=== PATIENT | male | born 1965 | race Caucasian/White ===

== ENCOUNTER 2016-12-21 17:40 | Emergency (ER) | payer MEDICARE, OTHER ==
[2016-12-21 18:22] LABS: HEMOGLOBIN 14.4 gm/dl (14.0-17.5); RED BLOOD COUNT 4.61 M/UL (4.20-5.50); WHITE BLOOD COUNT 7.5 K/UL (4.5-11.0)
[2016-12-21 18:43] LABS: BUN/CREATININE RATIO 13 (0-10)
== END 2016-12-21 23:07 | disposition home or self-care (01) ==
LOC: ER1 17:40
PROVIDERS: Emergency Medicine
DX: M79.662 Pain in left lower leg (principal); R07.9 Chest pain, unspecified; E11.9 Type 2 diabetes mellitus without complications; I10 Essential (primary) hypertension; G40.909 Epilepsy, unspecified, not intractable, without status epilepticus; Z86.718 Personal history of other venous thrombosis and embolism; Z86.711 Personal history of pulmonary embolism; Z79.82 Long term (current) use of aspirin; Z79.899 Other long term (current) drug therapy
CPT/HCPCS: 36415; 71010; 80048; 82040; 82247; 84075; 84155; 84450; 84460; 84484; 85025; 85379; 85610; 85730; 93005; 93925; 93971; 99284

== ENCOUNTER 2017-02-27 05:45 | Emergency (ER) | payer MEDICARE, OTHER ==
[2017-02-27 10:15] LABS: HEMOGLOBIN 13.1 gm/dl (14.0-17.5); RED BLOOD COUNT 4.28 M/UL (4.20-5.50)
[2017-02-27 10:35] LABS: BUN/CREATININE RATIO 17 (0-10)
== END 2017-02-27 14:10 | disposition home or self-care (01) ==
LOC: ER1 05:45
PROVIDERS: Emergency Medicine
DX: R10.9 Unspecified abdominal pain (principal); I10 Essential (primary) hypertension; I50.9 Heart failure, unspecified; E78.5 Hyperlipidemia, unspecified; G47.30 Sleep apnea, unspecified; J44.9 Chronic obstructive pulmonary disease, unspecified; Z86.73 Personal history of transient ischemic attack (TIA), and cerebral infarction without residual deficits
CPT/HCPCS: 36415; 71010; 80053; 81001; 82550; 82553; 83874; 84484; 85025; 93005; 96361; 96374; 96375; 96376; 99285; J2270; J2405; J7030; J7050; Q9962

== ENCOUNTER → 2017-03-01 | Outpatient (CLI) | payer MEDICARE, OTHER | LOC: LAB 09:27 | DX: R07.89 Other chest pain (principal) | CPT/HCPCS: 36415; 85379 ==

== ENCOUNTER → 2017-03-02 | Outpatient (CLI) | payer MEDICARE, OTHER | LOC: KOH-I 10:24 | DX: R10.811 Right upper quadrant abdominal tenderness (principal); R07.89 Other chest pain; K76.0 Fatty (change of) liver, not elsewhere classified; Z90.49 Acquired absence of other specified parts of digestive tract | CPT/HCPCS: 76705 ==

== ENCOUNTER 2021-07-08 10:24 | Emergency (ER) | payer MEDICARE ==
[~2021-07-08 10:24] MED LIST: ATORVASTATIN CA20 MG PO; BENADRYL 25MG C25 MG PO; BENTYL 10MG CAP10 MG PO; ECOTRIN81 MG PO; IBUPROFEN600 MG PO; NITROSTAT0.4 MG SL; NORCO 5-325 TA1 EACH PO; PROTONIX40 MG PO; ULTRAM50 MG PO; XYLOCAINE 2% JE30 ML TOP; ZANTAC150 MG PO; ZOFRAN ODT4 MG PO
== END 2021-07-08 13:10 | disposition home or self-care (01) ==
LOC: ER1 10:24
DX: U07.1 COVID-19 (principal); Z23 Encounter for immunization; K21.9 Gastro-esophageal reflux disease without esophagitis; M54.30 Sciatica, unspecified side
CPT/HCPCS: 99284; M0243

== ENCOUNTER 2021-08-12 07:32 | Emergency (ER) | payer MEDICARE ==
[2021-08-12 09:05] LABS: HEMOGLOBIN 15.1 gm/dl (14.0-17.5); RED BLOOD COUNT 4.9 M/UL (4.20-5.50); WHITE BLOOD COUNT 8.3 K/UL (4.5-11.0)
[2021-08-12 09:41] LABS: BUN/CREATININE RATIO 21 (0-10)
[2021-08-12] MEDS ORDERED: BENTYL 10MG CAP10 MG PO (11:46)
[2021-08-12] MEDS ORDERED: ZOFRAN ODT 4 MG4 MG SL (11:46)
[2021-08-12] MEDS ORDERED: PEPCID20 MG PO (11:46)
[2021-08-12] MEDS ORDERED: AUGMENTIN 875-1 EACH PO (11:46)
== END 2021-08-12 13:46 | disposition home or self-care (01) ==
LOC: ER1 07:32
PROVIDERS: Nurse Practitioner
DX: K52.9 Noninfective gastroenteritis and colitis, unspecified (principal); E78.5 Hyperlipidemia, unspecified; I10 Essential (primary) hypertension; Z86.16 Personal history of COVID-19; Z90.49 Acquired absence of other specified parts of digestive tract; Z87.891 Personal history of nicotine dependence; Z88.1 Allergy status to other antibiotic agents
CPT/HCPCS: 80053; 81001; 82550; 82553; 83605; 83690; 83874; 84484; 85025; 87086; 93005; 96372; 96374; 96375; 99284; J0500; J1200; J2270; J2405; J2765; J7030; Q9967

== ENCOUNTER 2022-02-28 06:42 | Observation (INO) | payer MEDICARE ==
[~2022-02-28] VITALS: Ht 185.4 cm; Wt 129.3 kg
[~2022-02-28 06:42] MED LIST changes: +AUGMENTIN 875-1 EACH PO; +PEPCID20 MG PO; +ZOFRAN ODT 4 MG4 MG SL
[2022-02-28 07:48] LABS: HEMOGLOBIN 15.2 gm/dl (14.0-17.5); WHITE BLOOD COUNT 6.3 K/UL (4.5-11.0)
[2022-02-28 07:50] LABS: BUN/CREATININE RATIO 16 (0-10)
[2022-02-28] MEDS ORDERED: METRONIDAZOLE45 GM TOP (09:33)
[2022-02-28] MEDS ORDERED: ZOLPIDEM TARTRA10 MG PO (09:34)
[2022-02-28] MEDS ORDERED: OMEPRAZOLE40 MG PO (09:34)
[2022-02-28] MEDS ORDERED: TACROLIMUS TOP (09:34)
[2022-02-28] MEDS ORDERED: PROMETHAZINE HC25 M1 PO (09:34)
[2022-02-28] MEDS ORDERED: LISINOPRIL-HCT1 EAC2 PO (09:35)
[2022-02-28] MEDS ORDERED: OMEGA-31000 MG PO (09:35)
[2022-03-01 08:22] LABS: HEMOGLOBIN 15.4 gm/dl (14.0-17.5); RED BLOOD COUNT 5.04 M/UL (4.20-5.50)
[2022-03-01 08:42] LABS: BUN/CREATININE RATIO 17 (0-10)
[2022-03-02 06:24] LABS: HEMOGLOBIN 14.6 gm/dl (14.0-17.5); RED BLOOD COUNT 4.81 M/UL (4.20-5.50); WHITE BLOOD COUNT 6.2 K/UL (4.5-11.0)
[2022-03-02] MEDS ORDERED: ISOSORBIDE MONO30 MG PO (17:33)
== END 2022-03-02 18:31 | disposition home or self-care (01) ==
LOC: ER1 06:42 → CDU 08:26 → MED SURG 4 08:26
PROVIDERS: Nurse Practitioner; Physician Assistant Medical; ADMIT Internal Medicine
DX: R07.89 Other chest pain (principal); I10 Essential (primary) hypertension; E78.5 Hyperlipidemia, unspecified; K76.0 Fatty (change of) liver, not elsewhere classified; I25.10 Atherosclerotic heart disease of native coronary artery without angina pectoris; R73.03 Prediabetes; G47.33 Obstructive sleep apnea (adult) (pediatric); E66.9 Obesity, unspecified; Z79.2 Long term (current) use of antibiotics; Z79.82 Long term (current) use of aspirin; Z79.899 Other long term (current) drug therapy; Z87.891 Personal history of nicotine dependence; Z88.1 Allergy status to other antibiotic agents; Z88.8 Allergy status to other drugs, medicaments and biological substances
CPT/HCPCS: ECHO; 36415; 71045; 78452; 80048; 80053; 80061; 82550; 82553; 83036; 83735; 84484; 85025; 85027; 93005; 93017; 93306; 96372; 96374; 96376; 99152; 99153; 99285; A9502; C1769; C1887; C1894; G0378; J1644; J2250; J2405; J2785; J3010; Q9967

== ENCOUNTER 2022-03-07 01:19 | Emergency (ER) | payer MEDICARE ==
[~2022-03-07 01:19] MED LIST changes: +ISOSORBIDE MONO30 MG PO; +LISINOPRIL-HCT1 EAC2 PO; +METRONIDAZOLE45 GM TOP; +OMEGA-31000 MG PO; +OMEPRAZOLE40 MG PO; +PROMETHAZINE HC25 M1 PO; +TACROLIMUS TOP; +ZOLPIDEM TARTRA10 MG PO
[2022-03-07 03:18] LABS: HEMOGLOBIN 14.9 gm/dl (14.0-17.5); RED BLOOD COUNT 4.87 M/UL (4.20-5.50); WHITE BLOOD COUNT 6.7 K/UL (4.5-11.0)
== END 2022-03-07 06:50 | disposition home or self-care (01) ==
LOC: ER1 01:19
PROVIDERS: Student in an Organized Health Care Education/Training Program
DX: R07.89 Other chest pain (principal); I10 Essential (primary) hypertension; Z90.49 Acquired absence of other specified parts of digestive tract; Z88.8 Allergy status to other drugs, medicaments and biological substances; Z51.81 Encounter for therapeutic drug level monitoring
CPT/HCPCS: 71045; 80053; 80307; 82550; 82553; 84484; 85025; 85379; 85610; 85730; 93005; 96374; 99285; J2405

== ENCOUNTER → 2022-04-06 | Outpatient (CLI) | payer MEDICARE | LOC: HEART 5 03-31 11:00 | DX: R00.2 Palpitations (principal) ==